=== PATIENT | male | born 1960 | race Caucasian/White ===

== ENCOUNTER 2020-02-04 12:48 | Outpatient (CLI) | payer OTHER, SELFPAY ==
--- NOTE | ~2020-02-04 | XR_ITS ---
EXAMINATION: XR hip LT min 3V w AP pelvis DATE: 02/04/2020 13:09 INDICATION: Left hip pain TECHNIQUE: Anteroposterior view of the pelvis and anteroposterior and frog-leg lateral views of the l eft hip were obtained. COMPARISON: None. FINDINGS: Alignment is normal. No fracture or suspected osteonecrosis. Mild bilateral sacroiliac osteoarthritis . Bilateral hip joint spaces are normal. Mild disc height loss at L4-L5. Soft tissues are unremarkabl e. IMPRESSION: 1. Normal left hip. No acute osseous abnormality. Reviewed, dictated and finalized at location A.
== END 2020-02-04 12:49 ==
PROVIDERS: PCP Internal Medicine; Visit Provider Internal Medicine
DX: M25.552 Pain in left hip (principal)
CPT/HCPCS: 73502

== ENCOUNTER → 2020-12-29 15:16 | Outpatient (CLI) | payer OTHER, SELFPAY ==
--- NOTE | ~2020-12-29 | MR_ITS ---
EXAMINATION: MR lumbar spine wo con EXAM DATE: 12/29/2020 15:59 INDICATION: M54.41 - Lumbago with sciatica, right side lumbago with sciatica. TECHNIQUE: Multi-sequential, multiplanar MR images of the lumbar spine were obtained without contrast . Sagittal T1, T2, T2 fat saturation images. Axial T2 weighted images. There is no prior study for comparison. FINDINGS: Central canal is congenitally narrow. The conus medullaris terminates at the T12-L1 level a nd has normal signal intensity and morphology. Mild to moderate loss of disc height from L1 through L5. Mild diffuse loss of lumbar vertebral body heights. There are no suspicious marrow signal abnorma lities. The vertebral bodies are aligned in the AP dimension. Paraspinal soft tissue is unremarkable. Level by level evaluation: T12-L1: Disc does not extend beyond the endplate margin. Facet arthropathy: None. Neural foraminal stenosis: No stenosis. Central canal stenosis: No stenosis. L1-L2: There is a mild to moderate diffuse disc bulge, superimposed moderate-sized central disc extru telma with both anterior and cephalad migration. Facet arthropathy: Mild. Neural foraminal stenosis: Mild left. Central canal stenosis: Mild to moderate. L2-L3: There is a moderate to large diffuse disc bulge, asymmetric to the right Facet arthropathy: Mild to moderate. Neural foraminal stenosis: Mild to moderate right, mild left. Central canal stenosis: Moderate to severe, nerve root crowding. L3-L4: There is a moderate diffuse disc bulge. Facet arthropathy: Mild to moderate. Neural foraminal stenosis: Moderate bilateral. Central canal stenosis: Moderate to severe, nerve root crowding. L4-L5: There is a large diffuse disc bulge, superimposed left central protrusion significantly narrow ing left lateral recess Facet arthropathy: Moderate . Ligamentum flavum enlargement. Neural foraminal stenosis: Moderate to severe bilateral. Central canal stenosis: Severe. L5-S1: There is a mild to moderate diffuse disc bulge. Facet arthropathy: Mild to moderate. Neural foraminal stenosis: Mild to moderate bilateral. Central canal stenosis: Mild. IMPRESSION: Lumbar bulges, protrusions and extrusions causing significant central canal stenosis, sup erimposed on a congenitally narrow lumbar spinal canal. Reviewed, dictated and finalized at location A. [employer] IMPRESSION: Lumbar bulges, protrusions and extrusions causing significant centr al canal stenosis, superimposed on a congenitally narrow lumbar spinal canal.
== END ==
PROVIDERS: PCP Internal Medicine; Visit Provider Internal Medicine
DX: M54.41 Lumbago with sciatica, right side (principal); M51.26 Other intervertebral disc displacement, lumbar region
CPT/HCPCS: 72148